=== PATIENT | female | born 1975 | race Caucasian/White ===

== ENCOUNTER 2016-09-24 12:55 | Emergency (ER) ==
[2016-09-24] MEDS ORDERED: NS 1,000 ML IV ONE (13:32)
--- NOTE | 2016-09-24 13:37 | PROVIDER DOCUMENTATION ---
HPI-Neurological Disorder - General Chief Complaint: Stroke-Like Symptoms Time Seen by Provider: 09/24/16 13:04 Source: patient, family Allergies/Adverse Reactions: Patient Allergies Allergy/AdvReac Type Severity Reaction Status Date / Time Sulfa (Sulfonamide Allergy Severe SWELLING Verified 09/24/16 13:12 Antibiotics) meperidine HCl * Allergy Unknown Verified 09/24/16 13:12 [From Demerol] Home Medications: Home Medication List Medication Instructions Recorded Confirmed Last Taken Type Citalopram [Celexa] 40 mg PO DAILY 03/06/16 09/24/16 03/05/16 20:00 History 40 MG Lovastatin 40 mg PO HS 03/06/16 09/24/16 03/05/16 20:00 History 20 MG Omeprazole 20 mg PO DAILY 03/06/16 09/24/16 03/06/16 07:00 History 20 MG Propranolol HCl 40 mg PO BID 03/06/16 09/24/16 03/06/16 07:00 History 40 MG Aspirin 325 mg PO DAILY 09/24/16 09/24/16 Unknown History Hydrochlorothiazide 12.5 mg PO DAILY 09/24/16 09/24/16 Unknown History Levetiracetam [Keppra] 500 mg PO BID 09/24/16 09/24/16 Unknown History - History of Present Illness-Neuro Nature of Presenting Problem: Patient is a 41 y/o F that presents to the ER with after having an episode of neck stiffness, weakness to legs, and tingling to legs. patient has had similar symptoms in past and was told she had something wrong with her carotid artery in neck( flap would come off and clog the artery). she was admitted at [facility] for same issues and has been seen at [facility] and followed by neurology there. Severity: reports: moderate Onset/Duration: reports: abrupt, this afternoon (1200) Timing: reports: still present, improving Context: reports: paresthesia. denies: fever, impaired speech, facial droop, falling, seizure activity Any recent trauma/injury?: reports: none Character of Deficits: reports: new weakness, decreased ability to stand New weakness or altered sensation location:: reports: RLE, LLE Cognitive Baseline: alert, oriented x3 Gait Baseline: walks without assistance Associated Symptoms: reports: numbness in legs/feet, trouble walking, weakness. denies: headache, chest pain, neck/back pain, ringing in ears, seizures, sleepy, vomiting, vision changes Similar Symptoms Previously?: Yes Recently seen or treated by another doctor?: Yes Review of Systems - Adult - REVIEW OF SYSTEMS - ADULT Constitutional: reports: no symptoms reported Eyes: denies: decreased vision, blurred vision, double vision Ears, Nose, Mouth & Throat: denies: ear pain, sinus problem, throat pain, throat swelling Cardiovascular: denies: chest pain, palpitations, syncope Respiratory: denies: cough, shortness of breath, wheezing Gastrointestinal: denies: abdominal pain, diarrhea, nausea, vomiting Genitourinary: reports: no symptoms reported Musculoskeletal: reports: muscle weakness, neck pain. denies: back pain Integumentary: reports: no symptoms reported Neurological: reports: dizziness/vertigo, numbness, paresthesia. denies: seizure, slurred speech, syncope Psychiatric: reports: no symptoms reported Endocrine: reports: no symptoms reported Hematologic/Lymphatic: reports: no symptoms reported Allergic/Immunologic: reports: no symptoms reported All Other Systems: Reviewed and Negative Past History - Adult - PAST MEDICAL HISTORY-ADULT Review of Records: reports: Old Records Reviewed, Nursing Assessment Review, Medications Reviewed Cardiovascular: reports: HTN Neurological: reports: Seizures/Epilepsy, other (pituitary tumor) Psychiatric: reports: anxiety, depression - PRIOR SURGERIES/PROCEDURES Surgical/Procedure History: reports: appendectomy, hysterectomy, - IMMUNIZATION STATUS Childhood Immunizations: See Nurse Assessment Flu Vaccine: See Nurse Assessment - FAMILY HISTORY Family History: reviewed, not pertinent - SOCIAL HISTORY Smoking: cigarettes, less than 1 pack/day Alcohol Use Frequency: occasionally Physical Exam- Neurological - Physical Exam-Neuro Initial Vital Signs Reviewed: Yes General Appearance: alert, anxious Eye Exam: bilateral eye: normal inspection, PERRL HENMT: normocephalic/atraumatic, moist mucous membranes, normal ENT inspection Neck: non-tender, full range of motion, normal inspection Respiratory: lungs clear, normal breath sounds, no respiratory distress, no accessory muscle use Cardiovascular: regular rate, rhythm, no murmur Abdominal Exam: normal bowel sounds, non tender, soft Extremity: no pedal edema, no calf tenderness, normal capillary refill, pelvis stable placement officer Exam: PERRL. negative: abnormal eye position, abnormal gag reflex, abnormal pupil position, abnormal speech, facial asymmetry, facial droop, facial paresthesias, facial weakness, gaze palsy Motor/Sensory: weak motor strength RLE. negative: sensory deficit, weak motor strength RUE, weak motor strength LUE, weak motor strength LLE Neurologic: motor weakness (slight to right lower leg). negative: aphasia, EOM palsy, facial droop, sensory deficit Integumentary: normal color, warm/dry Psych/Mental Status: oriented x 3, anxious - Glascow Coma Scale Best Eye Response: (4) open spontaneously Best Verbal Response: (5) oriented Best Motor Response: (6) obeys commands Total Glascow Score: 15 Progress - PLAN OF CARE/RESULTS Progress/Plan/Lab Results: plan of care-labs, ekg, cxr Vital Signs Temp Pulse Resp BP Pulse Ox 09/24/16 13:55 97.6 F 09/24/16 13:03 53 L 16 157/109 97 Sulfa (Sulfonamide Antibiotics) Allergy (Severe, Verified 09/24/16 13:12) SWELLING meperidine HCl * [From Demerol] Allergy (Verified 09/24/16 13:12) Unknown Citalopram [Celexa] 40 mg PO DAILY 03/06/16 Lovastatin 40 mg PO HS 03/06/16 Omeprazole 20 mg PO DAILY 03/06/16 Propranolol HCl 40 mg PO BID 03/06/16 Aspirin 325 mg PO DAILY 09/24/16 Hydrochlorothiazide 12.5 mg PO DAILY 09/24/16 Levetiracetam [Keppra] 500 mg PO BID 09/24/16 Laboratory 09/24/16 09/24/16 09/24/16 14:00 14:00 13:31 WBC RBC Hgb Hct MCV MCH MCHC RDW Std Deviation Plt Count MPV Immature Gran % (Auto) Neut % (Auto) Lymph % (Auto) [place] % (Auto) Eos % (Auto) Baso % (Auto) Immature Gran # (Auto) Neut # (Auto) Lymph # (Auto) [place] # (Auto) Eos # (Auto) Baso # (Auto) Specimen Type ARTERIAL Sample Site R RADIAL pH 7.46 H pCO2 40 pO2 120 H HCO3 28.1 H Base Excess 4.2 H Oxyhemoglobin 94.4 L ABG O2 Sat (Calculated) 18.4 ABG O2 Saturation 99.3 ABG Carboxyhemoglobin 3.90 H ABG Methemoglobin 1.0 Vimal Test YES A-a O2 Difference -20.0 Total Hemoglobin 13.7 Lactate 0.80 Liter Flow 2.0 Blood Gas Modality CANNULA FiO2 % 28.0 Sodium Potassium Chloride Carbon Dioxide Anion Gap BUN Creatinine Estimated GFR/1.73 m2 BUN/Creatinine Ratio Glucose Calculated Osmolality Calcium Total Bilirubin AST ALT Alkaline Phosphatase Creatine Kinase Troponin T Total Protein Albumin Globulin Albumin/Globulin Ratio Urine Source CLEAN CATCH Urine Color YELLOW Urine Clarity CLEAR Urine pH 6.5 Ur Specific [place] 1.010 Urine Protein NEGATIVE Urine Ketones NEGATIVE Urine Blood NEGATIVE Urine Nitrite NEGATIVE Urine Bilirubin NEGATIVE Urine Urobilinogen NORMAL Urine Microscopic RBC Not Reportable Urine WBC NEGATIVE Ur Epithelial Cells <10 Urine Glucose NEGATIVE Urine Opiates Screen NONE DETECTED Ur Oxycodone Screen NONE DETECTED Urine Methadone Screen NONE DETECTED Ur Barbituates Screen NONE DETECTED Ur Tricyclics Screen NONE DETECTED Ur Phencyclidine Scrn NONE DETECTED Ur Amphetamines Screen NONE DETECTED U Methamphetamines Scrn NONE DETECTED Urine MDMA Screen NONE DETECTED U Benzodiazepines Scrn NONE DETECTED Urine Cocaine Screen NONE DETECTED U Cannabinoids Screen NONE DETECTED Plasma/Serum Ethyl Alc 09/24/16 09/24/16 09/24/16 12:20 12:20 12:20 WBC 9.57 RBC 4.27 Hgb 14.1 Hct 40.5 MCV 94.8 MCH 33.0 H MCHC 34.8 RDW Std Deviation 13.1 Plt Count 263 MPV 11.5 H Immature Gran % (Auto) 0.1 Neut % (Auto) 54.4 Lymph % (Auto) 30.7 [place] % (Auto) 9.6 H Eos % (Auto) 4.3 Baso % (Auto) 0.9 H Immature Gran # (Auto) 0.01 Neut # (Auto) 5.20 Lymph # (Auto) 2.94 [place] # (Auto) 0.92 H Eos # (Auto) 0.41 Baso # (Auto) 0.09 Specimen Type Sample Site pH pCO2 pO2 HCO3 Base Excess Oxyhemoglobin ABG O2 Sat (Calculated) ABG O2 Saturation ABG Carboxyhemoglobin ABG Methemoglobin Vimal Test A-a O2 Difference Total Hemoglobin Lactate Liter Flow Blood Gas Modality FiO2 % Sodium Potassium Chloride Carbon Dioxide Anion Gap BUN Creatinine Estimated GFR/1.73 m2 BUN/Creatinine Ratio Glucose Calculated Osmolality Calcium Total Bilirubin AST ALT Alkaline Phosphatase Creatine Kinase Troponin T < 0.010 Total Protein Albumin Globulin Albumin/Globulin Ratio Urine Source Urine Color Urine Clarity Urine pH Ur Specific [place] Urine Protein Urine Ketones Urine Blood Urine Nitrite Urine Bilirubin Urine Urobilinogen Urine Microscopic RBC Urine WBC Ur Epithelial Cells Urine Glucose Urine Opiates Screen Ur Oxycodone Screen Urine Methadone Screen Ur Barbituates Screen Ur Tricyclics Screen Ur Phencyclidine Scrn Ur Amphetamines Screen U Methamphetamines Scrn Urine MDMA Screen U Benzodiazepines Scrn Urine Cocaine Screen U Cannabinoids Screen Plasma/Serum Ethyl Alc 09/24/16 12:20 WBC RBC Hgb Hct MCV MCH MCHC RDW Std Deviation Plt Count MPV Immature Gran % (Auto) Neut % (Auto) Lymph % (Auto) [place] % (Auto) Eos % (Auto) Baso % (Auto) Immature Gran # (Auto) Neut # (Auto) Lymph # (Auto) [place] # (Auto) Eos # (Auto) Baso # (Auto) Specimen Type Sample Site pH pCO2 pO2 HCO3 Base Excess Oxyhemoglobin ABG O2 Sat (Calculated) ABG O2 Saturation ABG Carboxyhemoglobin ABG Methemoglobin Vimal Test A-a O2 Difference Total Hemoglobin Lactate Liter Flow Blood Gas Modality FiO2 % Sodium 139 Potassium 4.1 Chloride 102 Carbon Dioxide 27 Anion Gap 10 BUN 10 Creatinine 0.8 Estimated GFR/1.73 m2 > 60 BUN/Creatinine Ratio 13 Glucose 98 Calculated Osmolality 277 Calcium 9.2 Total Bilirubin 0.60 AST 15 ALT 13 Alkaline Phosphatase 61 Creatine Kinase 52 Troponin T Total Protein 6.4 Albumin 4.3 Globulin 2.0 Albumin/Globulin Ratio 2.0 Urine Source Urine Color Urine Clarity Urine pH Ur Specific [place] Urine Protein Urine Ketones Urine Blood Urine Nitrite Urine Bilirubin Urine Urobilinogen Urine Microscopic RBC Urine WBC Ur Epithelial Cells Urine Glucose Urine Opiates Screen Ur Oxycodone Screen Urine Methadone Screen Ur Barbituates Screen Ur Tricyclics Screen Ur Phencyclidine Scrn Ur Amphetamines Screen U Methamphetamines Scrn Urine MDMA Screen U Benzodiazepines Scrn Urine Cocaine Screen U Cannabinoids Screen Plasma/Serum Ethyl Alc Orders Category Date Time Status Cardiac Monitoring DIRECTED Care 09/24/16 13:33 Active Finger Stick Blood Sugar (ED) DIRECTED Care 09/24/16 13:33 Active Oxygen Therapy- ED Nursing DIRECTED Care 09/24/16 13:33 Active Saline Loc NOW Care 09/24/16 13:33 Active CHEST-PORTABLE [RAD] Stat Exams 09/24/16 13:33 Draft ABG [RESP] Routine Lab 09/24/16 13:31 Completed ALCOHOL BLOOD Stat Lab 09/24/16 12:20 Completed CBC WITH ELECTRONIC DIFF [HEME] Stat Lab 09/24/16 12:20 Completed CK PROFILE [SP CHEM] Stat Lab 09/24/16 12:20 Completed COMPREHENSIVE METABOLIC PANEL [CHEM] Stat Lab 09/24/16 12:20 Completed TROPONIN T Stat Lab 09/24/16 12:[address] W/POSS RFLX CULT [URINALYSIS] Stat Lab 09/24/16 14:00 Com[address]INE DRUG SCREEN PL Stat Lab 09/24/16 14:00 Completed 0.9% Sodium Chloride Inj [Ns] 1,000 ml Med 09/24/16 13:32 Discontinued IV 999 mls/hr Pulse Oximetry Stat Oth 09/24/16 13:33 Active EKG [EKG] Stat Ther 09/24/16 13:33 Draft pt will be d/c home, f/u with at [facility] with neurology pt was clinically stable, understood instructions. - EKG 1 Time of EKG reading by physician:: 13:35 EKG Read and Signed by:: Franky Vásquez EKG Interpretation (*Must complete 3 of following elements*): Abnormal Rate: 52 Rhythm: Sinus bradycardia QRS: LVH MN Interval: normal ST Wave: non-specific ST changes - XRAY 1 XRAY Study: Chest Impression: Normal XRAY Interpretation: nad Departure - Departure Time of Disposition Order: 15:14 DIAGNOSIS: Neurologic disorder Disposition: HOME 01 Certified Medical Emergency: Emergent Condition: Stable Additional Instructions: ED Follow Up Instructions: You have been treated by a care provider in the Emergency Department. These instructions are being provided to you so you can have an understanding of how to care for yourself upon discharge. Upon discharge from the Emergency Department, you are responsible for making arrangements for follow-up care by a physician of your choice. Take all prescribed medications as directed. Return to the Emergency Department immediately for any new or worsening symptoms. You may call the Physician Referral phone number at [phone] to obtain a list of Physicians who are taking new patients. Attestation - Scribe Verification/Attestation Scribe:: Eduin Cerda Acting as Scribe for:: Franky Vásquez Scribe documention review:: This chart was documented by a scribe and accurately reflects the service the provider performed and the decisions made by the provider. Physician Attestation - Physician Attestation I, the provider, attest to the following statement:: Franky Vásquez Physician documentation Attestation:: This documentation recorded by the scribe accurately reflects the service I personally performed and the decisions made by me.
[2016-09-24 13:43] LABS: MANUAL DIFF NEEDED? NO
[2016-09-24 13:47] LABS: BASO% 0.9 % (0.0-0.8); EOS# 0.41 X1000 (0.0-0.7); EOS% 4.3 % (0.0-10.0); HEMATOCRIT 40.5 % (37.0-47.0); HEMOGLOBIN 14.1 g/dL (12.0-16.0); IMM GRAN# 0.01 X1000 (0.0-0.04); IMM GRAN% 0.1 % (0.0-0.5); LYMPH# 2.94 X1000 (1.2-3.4); LYMPH% 30.7 % (20.5-51.1); MCHC 34.8 g/dL (33-37); MCV 94.8 FL (81-99); MONO# 0.92 X1000 (0.11-0.59); MONO% 9.6 % (1.7-9.3); MPV 11.5 FL (7.4-10.4); NEUT% 54.4 % (42.2-75.2); PLT 263 X1000 (130-400); RBC 4.27 XMIL (4.2-5.4)
[2016-09-24 13:48] LABS: BE 4.2 mmoll (-3.0-3.0); BLOOD TYPE ARTERIAL; O2(CT) 18.4 mL/dL (15.0-23.0); PCO2(98.6) 40 mmHg (35-45); PO2(98.6) 120 mmHg (60-100); SAMPLE BLOOD; SAO2 99.3 % (95.0-100.0); THB 13.7 g/dL (11.5-17.4); pH(98.6) 7.46 (7.35-7.45)
[2016-09-24 13:49] LABS: MODALITY CANNULA
[2016-09-24 13:50] LABS: ALLEN TEST YES; DRAW SITE R RADIAL
--- NOTE | 2016-09-24 13:52 | EKG Report ---
Test Performed on : 09/24/2016 1:35:30 PM Test Reason : AMS Blood Pressure : / mmHG Vent. Rate : 052 BPM Atrial Rate : 052 BPM P-R Int : 160 ms QRS Dur : 094 ms QT Int : 474 ms P-R-T Axes : 063 037 030 degrees QTc Int : 440 ms Sinus bradycardia. with sinus arrhythmia. Moderate voltage criteria for LVH, may be normal variant Nonspecific T wave abnormality Abnormal ECG When compared with ECG of 29-NOV-2014 10:27, Nonspecific T wave abnormality, worse in Anterior leads Unconfirmed Result
[2016-09-24 13:56] LABS: AGAP 10; ALBUMIN 4.3 g/dL (3.5-5.0); ALKALINE PHOSPHATASE 61 U/L (32-104); BUN 10 mg/dL (8-22); CALCIUM 9.2 mg/dL (8.8-10.2); CHLORIDE 102 mmol/L (98-107); CK PROFILE 52 U/L (24-173); COSMO 277; GOT 15 U/L (10-30); GPT 13 U/L (10-36); POTASSIUM 4.1 mmol/L (3.5-5.1); SODIUM 139 mmol/L (136-145); TCO2 27 mmol/L (25-35); TOTAL PROTEIN 6.4 g/dL (6.3-8.3)
[2016-09-24 14:10] LABS: URINE CULTURE PL NEEDED? NO; URINE SOURCE CLEAN CATCH
[2016-09-24 14:18] LABS: UR AMPHETAMINES QUAL NONE DETECTED (NONE DETECT); UR BARBITUATES QUAL NONE DETECTED (NONE DETECT); UR BENZODIAZEPIN QUAL NONE DETECTED (NONE DETECT); UR CANNABINOIDS QUAL NONE DETECTED (NONE DETECT); UR COCAINE QUAL NONE DETECTED (NONE DETECT); UR MDMA QUAL NONE DETECTED (NONE DETECT); UR METHADONE QUAL NONE DETECTED (NONE DETECT); UR METHAMPHETAMINE QUAL NONE DETECTED (NONE DETECT); UR OPIATES QUAL NONE DETECTED (NONE DETECT); UR OXYCODONE QUAL NONE DETECTED (NONE DETECT); UR PCP QUAL NONE DETECTED (NONE DETECT); UR TCA QUAL NONE DETECTED (NONE DETECT)
[2016-09-24 14:21] LABS: BILIRUBIN URINE NEGATIVE (NEGATIVE); BLOOD URINE NEGATIVE (NEGATIVE); CLARITY CLEAR (CLEAR); COLOR YELLOW; GLUCOSE URINE NEGATIVE (NEGATIVE); LEUKOCYTES URINE NEGATIVE (NEGATIVE); NITRITE URINE NEGATIVE (NEGATIVE); PH URINE 6.5; PROTEIN URINE NEGATIVE (NEGATIVE); URINE EPITHELIAL CELLS <10 /HPF (<10); UROBILINOGEN URINE NORMAL
--- NOTE | 2016-09-24 14:46 | Diag Imaging Result Document ---
PROCEDURE NAME: CHEST-PORTABLE - 09/24/2016 SINGLE FRONTAL RADIOGRAPH OF THE CHEST: COMPARISON: None available. FINDINGS: The lungs are grossly clear. There is no discrete pleural fluid collection or pneumothorax. The cardiomediastinal silhouette and upper airway are grossly unremarkable. IMPRESSION: No evidence of acute chest pathology.
[2016-09-24 15:43] VITALS: BP 127/91
== END 2016-09-24 15:43 | disposition home or self-care (01) ==
LOC: P.ED 12:55
DX: R29.90 Unspecified symptoms and signs involving the nervous system (principal); M54.2 Cervicalgia; R53.1 Weakness; R20.2 Paresthesia of skin; M62.81 Muscle weakness (generalized); R42 Dizziness and giddiness; I10 Essential (primary) hypertension; R56.9 Unspecified convulsions; F41.9 Anxiety disorder, unspecified; F32.9 Major depressive disorder, single episode, unspecified; F17.210 Nicotine dependence, cigarettes, uncomplicated; R94.31 Abnormal electrocardiogram [ECG] [EKG]; Z79.899 Other long term (current) drug therapy; Z79.82 Long term (current) use of aspirin
CPT/HCPCS: 71010; 80053; 80305; 81001; 82550; 82805; 82948; 84484; 85025; 93005; 96360; G0480; J7030; 80320